=== PATIENT | male | born 1990 | race Two or more races ===

== ENCOUNTER 2019-11-22 12:17 | Emergency (ER) | payer BC, OTHER ==
[~2019-11-22] VITALS: Ht 185.4 cm; Wt 82.0 kg
--- NOTE | 2019-11-22 12:23 | NUR ---
PT BIB BY [facility]. WAS AT WORK SITTING AT HIS DESK WHEN HE AT A WITNESSED SZ THAT LASTED ABOUT ONE MINUTE. PT STATES "THAT WAS MY FIRST ONE". NO OTHER MEDICAL HX. PT IS AOX4. SZ PRECATIONS IN PLACE. 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
[2019-11-22] MEDS ORDERED: LORazepam 2 MG/ML, 1ML ONE (12:56)
[2019-11-22] MEDS ORDERED: SODIUM CHLORIDE FLUSH 10ML SYR IVF ONE (13:00)
[2019-11-22] MEDS ORDERED: LORazepam 2 MG/ML, 1ML IVPush ONE (13:00)
--- NOTE | 2019-11-22 13:01 | NUR ---
PT MEDICATED PER MAR
[2019-11-22 13:12] LABS: MEAN CORPUSCULAR HEMOGLOBIN 29.7 pg (27.5-34.5); MEAN CORPUSCULAR HGB CONC 34.2 g/dL (33.2-36.2); MEAN PLATELET VOLUME 7.9 fL (7.4-10.4); PLATELET COUNT 271 x10^3/uL (130-400); RED BLOOD COUNT 5.55 x10^6/uL (4.38-5.82); RED CELL DISTRIBUTION WIDTH 13.7 % (9.4-14.8)
[2019-11-22 13:21] LABS: ALANINE AMINOTRANSFERASE 39 U/L (12-78); ALBUMIN 4.8 g/dL (3.4-5.0); ANION GAP 8 mmol/L (5-15); CALCIUM 9.2 mg/dL (8.5-10.1); CHLORIDE 105 mmol/L (98-107); CREATININE 1.07 mg/dL (0.7-1.3)
[2019-11-22 13:24] LABS: ALKALINE PHOSPHATASE 104 U/L (45-117); BILIRUBIN,TOTAL 0.7 mg/dL (0.2-1.0); TOTAL PROTEIN 8.4 g/dL (6.4-8.2)
[2019-11-22 13:29] LABS: BASOPHILS # (AUTO) 0.01 x10^3/uL (0-0.1); BASOPHILS % (AUTO) 0 % (0-1); EOSINOPHILS % (AUTO) 0 % (1-7); LYMPHOCYTES # (AUTO) 0.91 x10^3/uL (1-3.4); LYMPHOCYTES % (AUTO) 5 % (22-44); MD SCAN; MONOCYTES # (AUTO) 0.21 x10^3/uL (0.2-0.8); MONOCYTES % (AUTO) 1 % (2-9); NEUTROPHILS # (AUTO) 15.81 x10^3/uL (1.8-6.8); NEUTROPHILS % (AUTO) 93 % (42-75)
[2019-11-22 13:33] VITALS: BP 137/74
--- NOTE | 2019-11-22 13:34 | NUR ---
PT AMBULATED TO RESTROOM
[2019-11-22 14:04] LABS: AMPHETAMINE SCREEN, URINE Negative (Negative); BARBITURATE SCREEN, URINE Negative (Negative); BENZODIAZEPINE SCREEN, URINE Positive (Negative); CANNABINOID SCREEN, URINE Positive (Negative); COCAINE SCREEN, URINE Negative (Negative); METHADONE SCREEN, URINE Negative (Negative); OPIATE SCREEN, URINE Negative (Negative)
--- NOTE | 2019-11-22 14:23 | NUR ---
PT IN CT AT THIS TIME
== END 2019-11-22 15:11 | disposition home or self-care (01) ==
LOC: ED 13:17
DX: G40.409 Other generalized epilepsy and epileptic syndromes, not intractable, without status epilepticus (principal)
CPT/HCPCS: 36415; 70450; 80053; 80307; 83735; 85025; 93005; 96374; 99285; J2060